=== PATIENT | female | born 1995 | race Caucasian/White ===

== ENCOUNTER 2023-10-07 20:22 | Emergency (ER) | payer MEDICAID, SELFPAY ==
[2023-10-07 20:23] VITALS: BP 145/87; PULSE 94; RESP 16; TEMP 36.5; O2SAT 94; BMI 30.7
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
[2023-10-07] MEDS: 0.9% Normal Saline (1000mL) 1,000 ML 999 ML IV (20:30)
--- NOTE | 2023-10-07 20:39 | CT_ITS ---
EXAM: CT HEAD WITHOUT INTRAVENOUS CONTRAST CLINICAL INDICATION: confusion TECHNIQUE: Multiple axial images were obtained of the head without intravenous contrast. CTDIvol = ( 44.99 ) mGy, DLP = ( 745.49 ) mGycm This CT exam was performed using one or more of the following dose reduction techniques: automated exposure control, adjustment of the mA and/or kV according to patient size, and/or use of iterative reconstruction technique. COMPARISON: No relevant prior studies available. FINDINGS: BRAIN AND EXTRA-AXIAL SPACES: Unremarkable. No intra- or extra-axial hemorrhage. No evidence of acute infarct. No intracranial mass or mass effect. There is preservation of the bashir/white matter interface. Posterior fossa structures are unremarkable. Ventricles are appropriate for age. No hydrocephalus. Basal cisterns are patent. BONES/JOINTS: Unremarkable. No discrete lytic or blastic abnormalities. SINUSES: Unremarkable as visualized. Clear. MASTOID AIR CELLS: Unremarkable. Clear. ORBITS: Visualized globes, extraocular muscles, optic nerves and retrobulbar fat appear unremarkable. CT/Brain/Head without Contrast IMPRESSION: Negative head/brain CT without intravenous contrast. AIDOC program was used to assist in the detection of abnormal findings. Electronically Signed: Ty Greer MD at 22:39 EDT ,
--- NOTE | 2023-10-07 21:05 | ED.RN ---
Charge nurse called to bedside to answer questions. Patient was yelling at registration regarding the treatment of EMS to her. This RN explains that registration is not a medical care provider and all she can do is take your information to get you registered. This RN again explains that yes EMS gave her Narcan, patient is screaming don't Narcan me, I'm not a drug addict, i cant believe they gave that to me, they cant do that This RN asks patient to try to remain calm and control her breathing. This RN explains that if she did not have any drugs in her system that the medication would not do anything. This RN also explained that is the EMS protocol to try narcan when a patient is unresponsive and having lower respirations. Patient and family/friends state understanding.
[2023-10-07 21:15] VITALS: BP 121/80; PULSE 95; RESP 16; O2SAT 98
[2023-10-07 21:26] LABS: Absolute Lymphocyte Count 2.42 X10^3/uL (0.83-4.51); Absolute Neutrophil Count 4.9 X10^3/uL (2.0-7.7); Basophil# 0.05 X10^3/uL; Basophil% 0.6 % (0-1); Eosinophil# 0.07 X10^3/uL; Eosinophils% 0.9 % (0-5); Hematocrit 43.9 % (37-47); Hemoglobin 14.6 g/dL (12.0-15.0); Lymphocyte # 2.42 X10^3/ul (0.83-4.51); Lymphocyte % 30.6 % (19-41); Mean Corp Hgb Conc 33.3 g/dL (32-36); Mean Corpuscular Hgb 30.7 pg (27.0-32.0); Mean Corpuscular Volume 92.4 fL (81-99); Mean Platelet Vol. 9.3 fl (6.2-12.0); Monocyte# 0.47 X10^3/uL; Monocyte% 5.9 % (0-10); NRBC Flagged by Analyzer 0 % (0-5); Neutrophil # 4.88 X10^3/uL (2.7-7.7); Neutrophil % 61.9 % (47-70); Platelet Count 429 K/mm3 (150-450); RBC Distribution Width CV 12.7 % (11.6-14.6); RBC Distribution Width SD 43.2 fl (35.1-43.9); Red Blood Count 4.75 M/mm3 (4.2-5.4); White Blood Count 7.9 K/mm3 (4.4-11.0)
[2023-10-07 22:00] VITALS: BP 92/43; PULSE 93; RESP 18; O2SAT 98
[2023-10-07 22:21] LABS: Anion Gap 11 (5-15); BUN 9 mg/dL (7-18); BUN/Creat Ratio 13.8 RATIO (10-20); Calcium,Total 8.7 mg/dL (8.5-10.1); Chloride 112 mmol/L (98-107); Creatinine, Serum 0.65 mg/dL (0.55-1.02); EST Glomerular Filtration Rate 115 mL/min (>60); Est Glom Filt Rate - Afr Amer 139 mL/min (>60); Estimated Creatinine Clearance 113.71 ml/min; Glucose 98 mg/dL (74-106); Potassium 3.6 mmol/L (3.5-5.1); Sodium Level 142 mmol/L (136-145)
[2023-10-07] MEDS: Acetaminophen 500 MG Tablet 1000 MG PO (22:24)
[2023-10-07 23:00] VITALS: BP 97/50; PULSE 97; RESP 18; TEMP 36.6; O2SAT 98
== END 2023-10-07 23:02 | disposition home or self-care (01) ==
PROVIDERS: Physician Assistant; Emergency Provider Emergency Medicine; Visit Provider Emergency Medicine
DX: F10.129 Alcohol abuse with intoxication, unspecified (principal); F17.210 Nicotine dependence, cigarettes, uncomplicated; F17.290 Nicotine dependence, other tobacco product, uncomplicated
CPT/HCPCS: 70450; 80048; 80320; 85025; 96360; 96361; 99283; J7030; A4216; G0480